=== PATIENT | female | born 1940 | race Caucasian/White ===

== ENCOUNTER 2019-04-22 10:20 | Inpatient (IN) ==
[2019-04-24] MEDS ORDERED: Mag Hydrox/Al Hydrox/Simeth 30 ML UDC PO PRN (12:49)
[2019-04-24] MEDS ORDERED: Ondansetron ODT 4 MG TAB.RAPDIS SL PRN (12:50)
[2019-04-24] MEDS ORDERED: ALIROCUMAB 75 MG SQ SCH (13:00)
[2019-04-24] MEDS: *HR* HYDROcodone/Acet 5/325 mg TABLET PO PRN ×2 (17:22→23:33)
[2019-04-24] MEDS ORDERED: Aspirin Enteric Coated 81 MG Tablet PO SCH (21:00)
[2019-04-24] MEDS: carvediloL 6.25 MG TABLET PO SCH (22:17)
[2019-04-24] MEDS: Melatonin 3 MG TABLET PO PRN (22:20)
[2019-04-24] MEDS: Latanoprost 2.5 ML BOTTLE BOTH EYES SCH ×2 (22:23→23:46)
[2019-04-25 05:41] LABS: Basophils # 0.1 K/mcL (0.0-0.2); Basophils % 0.6 %; Eosinophils # 0.5 K/mcL (0.0-0.6); Eosinophils % 4.2 %; Hematocrit 28.4 % (35.3-44.9); Hemoglobin 9.1 g/dL (11.5-15.4); Immature Granulocytes % 0.9 % (0-4); Lymphocytes # 2.1 K/mcL (0.6-4.6); Lymphocytes % 17.5 %; Mean Corpuscular Hemoglobin 30.6 pg (28.0-33.3); Mean Corpuscular Volume 95.6 fL (83.0-100.0); Mean Platelet Volume 10.6 fL (9.4-12.4); Monocytes # 1.4 K/mcL (0.0-1.3); Monocytes % 11.4 %; Neutrophils # 7.8 K/mcL (1.6-8.9); Platelet Count 254 K/mcL (140-400); Red Blood Count 2.97 M/mcL (3.82-4.97); Red Cell Distribution Width 13.5 % (11.5-14.5); Segmented Neutrophils % 65.4 %; White Blood Count 11.9 K/mcL (4.3-11.1)
[2019-04-25 06:00] LABS: Alanine Aminotransferase 122 Units/L (7-52); Albumin 3.6 g/dL (3.5-5.7); Albumin/Globulin Ratio 1.3 (1.1-2.2); Alkaline Phosphatase 101 Units/L (34-104); Aspartate Amino Transferase 120 Units/L (13-39); BUN/Creatinine Ratio 20 (6-26); Bilirubin,Total 0.6 mg/dL (0.3-1.0); Blood Urea Nitrogen 17 mg/dL (8-23); Calcium 8.9 mg/dL (8.6-10.3); Carbon Dioxide 30 mEq/L (23-29); Chloride 103 mEq/L (98-107); Globulin 2.8 g/dL (2.4-3.5); Glucose 132 mg/dL (70-105); Magnesium 2.2 mg/dL (1.6-2.6); Osmolality,Calculated 291 (280-300); Potassium 4.6 mEq/L (3.5-5.1); Sodium 139 mEq/L (136-145); Total Protein 6.4 g/dL (6.4-8.9); eGFR For African Americans > 60 (> 60); eGFR For Non-African Americans > 60 (> 60)
[2019-04-25] MEDS: *HR* HYDROcodone/Acet 5/325 mg TABLET PO PRN ×2 (07:00→17:26)
[2019-04-25] MEDS: *HR* Enoxaparin 40 MG/0.4 ML SYRINGE SQ SCH (07:00)
[2019-04-25] MEDS: Multivit/Ca/Min/Fe/FA 1 TAB TABLET PO SCH (08:20)
[2019-04-25] MEDS: Cholecalciferol (D-3) 1,000 UNIT (25MCG) TABLET PO SCH (08:20)
[2019-04-25] MEDS: Aspirin Enteric Coated 81 MG Tablet PO SCH (08:20)
[2019-04-25] MEDS: Famotidine 20 MG TABLET PO SCH (08:21)
[2019-04-25] MEDS: Spironolactone 25 MG TABLET PO SCH (08:21)
[2019-04-25] MEDS ORDERED: NON-FORMULARY MEDICATION 1 EACH EACH (Vit C/Vit E/Lutein/Min/Omega-3 [Ocuvite Softgel] 1 C PO SCH (09:00)
[2019-04-25] MEDS: Melatonin 3 MG TABLET PO PRN (20:26)
[2019-04-25] MEDS: carvediloL 6.25 MG TABLET PO SCH (20:26)
[2019-04-25] MEDS: Latanoprost 2.5 ML BOTTLE BOTH EYES SCH (20:26)
[2019-04-26] MEDS: *HR* Enoxaparin 40 MG/0.4 ML SYRINGE SQ SCH (04:21)
[2019-04-26] MEDS: *HR* HYDROcodone/Acet 5/325 mg TABLET PO PRN ×3 (04:21→20:06)
[2019-04-26] MEDS: Spironolactone 25 MG TABLET PO SCH (08:13)
[2019-04-26] MEDS: Aspirin Enteric Coated 81 MG Tablet PO SCH (08:13)
[2019-04-26] MEDS: Multivit/Ca/Min/Fe/FA 1 TAB TABLET PO SCH (08:13)
[2019-04-26] MEDS: Cholecalciferol (D-3) 1,000 UNIT (25MCG) TABLET PO SCH (08:14)
[2019-04-26] MEDS: Famotidine 20 MG TABLET PO SCH (08:14)
[2019-04-26] MEDS: Latanoprost 2.5 ML BOTTLE BOTH EYES SCH (20:06)
[2019-04-26] MEDS: Melatonin 3 MG TABLET PO PRN (20:06)
[2019-04-26] MEDS: carvediloL 6.25 MG TABLET PO SCH (20:06)
[2019-04-27] MEDS: *HR* HYDROcodone/Acet 5/325 mg TABLET PO PRN ×3 (03:18→17:52)
[2019-04-27] MEDS: *HR* Enoxaparin 40 MG/0.4 ML SYRINGE SQ SCH (05:28)
[2019-04-27] MEDS: Famotidine 20 MG TABLET PO SCH (08:27)
[2019-04-27] MEDS: Multivit/Ca/Min/Fe/FA 1 TAB TABLET PO SCH (08:27)
[2019-04-27] MEDS: Spironolactone 25 MG TABLET PO SCH (08:28)
[2019-04-27] MEDS: Aspirin Enteric Coated 81 MG Tablet PO SCH (08:28)
[2019-04-27] MEDS: Cholecalciferol (D-3) 1,000 UNIT (25MCG) TABLET PO SCH (08:28)
[2019-04-27] MEDS: carvediloL 6.25 MG TABLET PO SCH (20:23)
[2019-04-27] MEDS: Melatonin 3 MG TABLET PO PRN (20:23)
[2019-04-27] MEDS: Latanoprost 2.5 ML BOTTLE BOTH EYES SCH (20:24)
[2019-04-28] MEDS: *HR* HYDROcodone/Acet 5/325 mg TABLET PO PRN (06:51)
[2019-04-28] MEDS: *HR* Enoxaparin 40 MG/0.4 ML SYRINGE SQ SCH (06:52)
[2019-04-28] MEDS: Spironolactone 25 MG TABLET PO SCH (08:00)
[2019-04-28] MEDS: Multivit/Ca/Min/Fe/FA 1 TAB TABLET PO SCH (08:00)
[2019-04-28] MEDS: Cholecalciferol (D-3) 1,000 UNIT (25MCG) TABLET PO SCH (08:00)
[2019-04-28] MEDS: Aspirin Enteric Coated 81 MG Tablet PO SCH (08:00)
[2019-04-28] MEDS: Famotidine 20 MG TABLET PO SCH (08:00)
[2019-04-28 11:59] VITALS: BP 162/78
[2019-04-29] MEDS ORDERED: ALIROCUMAB 75 MG SQ SCH (09:00)
== END 2019-04-28 11:30 | disposition home or self-care (01) | DRG 560 ==
LOC: INPGRE 04-24 11:57